=== PATIENT | female | born 1995 | race American Indian/Alaskan Native ===

== ENCOUNTER 2016-11-01 13:31 | Emergency (ER) | payer MEDICAID ==
[2016-11-01] MEDS ORDERED: TYLENOL PO ONE (14:30)
--- NOTE | 2016-11-01 14:30 | Emergency Department Report ---
Chief Complaint: Sore Throat Stated Complaint: STREP THROAT/ELEVATED TEMP/PAIN Time Seen by Provider: 11/01/16 14:26 - HPI History of Present Illness: PT c/o sore throat and fever since yesterday. PT [facility] could not treat her due to her fever. 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 Due to findings the following was ordered: meds ED Disposition for MSE Condition: Stable
[2016-11-01 14:31] VITALS: BP 110/69
--- NOTE | 2016-11-01 22:43 | Emergency Department Report ---
Entered by JUNIOR PEREZ, acting as scribe for FABIAN PARRISH NP. ED ENT HPI - General Chief complaint: Sore Throat Stated complaint: STREP THROAT/ELEVATED TEMP/PAIN Time Seen by Provider: 11/01/16 14:26 Source: patient, EMS Mode of arrival: Stretcher Limitations: No Limitations - History of Present Illness Initial comments: This is a 21-y/o-female, nontoxic, well nourished in appearance, no acute signs of distress presents with constant, achy sore throat and left sided ear pain that started yesterday with no aggravating or alleviating factors. Sx include subjective fever but pt denies wheezing, chest pain, SOB, SON, dizziness, fever, chills, stiff neck, numbness, abd pain or n/v. She notes being seen at [facility] today and being Dx with strep throat and left otitis media although they could not treat it due to her fever. No additional Sx. NKDA. complaint: sore throat, ear pain (left sided) -: days(s) (1) Location: L ear, throat Severity: moderate Severity scale (0 -10): 6 Quality: aching Consistency: constant Improves with: none Worsens with: none Associated Symptoms: sore throat. denies: fever, cough, gum swelling, toothache , pain with swallowing, tinnitus, hearing loss, discharge from ear, rhinorrhea - Related Data Home Medications Medication Instructions Recorded Confirmed Last Taken Folic Acid/Multivit-Min/Lutein 1 tab PO DAILY 07/16/13 07/16/13 06/20/13 [Therapeutic-M] Previous Rx's Medication Instructions Recorded Last Taken Type HYDROcodone/APAP 5-325 [[place] 1 each PO Q4H PRN #30 tablet 07/19/13 Unknown Rx 5/325 mg] Amoxicillin/K Clav Tab [Augmentin 1 tab PO Q12HR 10 Days 11/01/16 Unknown Rx 875 mg] Allergies Allergy/AdvReac Type Severity Reaction Status Date / Time No Known Allergies Allergy Verified 09/06/14 16:12 ED Dental HPI - General Chief complaint: Sore Throat Stated complaint: STREP THROAT/ELEVATED TEMP/PAIN Time Seen by Provider: 11/01/16 14:26 Source: patient, EMS Mode of arrival: Stretcher Limitations: No Limitations - Related Data Home Medications Medication Instructions Recorded Confirmed Last Taken Folic Acid/Multivit-Min/Lutein 1 tab PO DAILY 07/16/13 07/16/13 06/20/13 [Therapeutic-M] Previous Rx's Medication Instructions Recorded Last Taken Type HYDROcodone/APAP 5-325 [[place] 1 each PO Q4H PRN #30 tablet 07/19/13 Unknown Rx 5/325 mg] Amoxicillin/K Clav Tab [Augmentin 1 tab PO Q12HR 10 Days 11/01/16 Unknown Rx 875 mg] Allergies Allergy/AdvReac Type Severity Reaction Status Date / Time No Known Allergies Allergy Verified 09/06/14 16:12 ED Review of Systems Comment: All other systems reviewed and negative Constitutional: fever. denies: chills Eyes: denies: eye pain, eye discharge, vision change ENT: ear pain (left sided), throat pain Respiratory: denies: cough, shortness of breath, wheezing Cardiovascular: denies: chest pain Endocrine: no symptoms reported Gastrointestinal: denies: abdominal pain, nausea, vomiting Genitourinary: denies: urgency, dysuria, discharge Musculoskeletal: denies: back pain, joint swelling, arthralgia Skin: denies: rash, lesions Neurological: denies: headache, weakness, numbness Psychiatric: denies: anxiety, depression Hematological/Lymphatic: denies: easy bleeding, easy bruising ED Past Medical Hx - Past Medical History Previous Medical History?: Yes Hx Sickle Cell Disease: Yes Additional medical history: osteomyelitis - Surgical History Past Surgical History?: Yes Additional Surgical History: right leg surgery - Social History Smoking Status: Never Smoker Substance Use Type: None - Medications Home Medications: Home Medications Medication Instructions Recorded Confirmed Last Taken Type Folic Acid/Multivit-Min/Lutein 1 tab PO DAILY 07/16/13 07/16/13 06/20/13 History [Therapeutic-M] HYDROcodone/APAP 5-325 [[place] 1 each PO Q4H PRN #30 tablet 07/19/13 Unknown Rx 5/325 mg] Amoxicillin/K Clav Tab [Augmentin 1 tab PO Q12HR 10 Days 11/01/16 Unknown Rx 875 mg] ED Physical Exam - General Limitations: No Limitations General appearance: alert, in no apparent distress - Head Head exam: Present: atraumatic, normocephalic - Eye Eye exam: Present: normal appearance, PERRL, EOMI Pupils: Present: normal accommodation - ENT ENT exam: Present: mucous membranes moist, normal external ear exam - Expanded ENT Exam Expanded Ear exam: Present: normal external inspection TM/Canal exam: Erythema: Left TM, Bulging: Left TM Mouth exam: Present: normal external inspection, tongue normal. Absent: drooling, trismus, muffled voice, tongue elevation, laceration Teeth exam: Present: normal inspection Throat exam: Positive: tonsillar erythema, tonsillomegaly (2+), tonsillar exudate. Negative: R peritonsillar mass, L peritonsillar mass - Neck Neck exam: Present: normal inspection, full ROM. Absent: tenderness, meningismus, lymphadenopathy, thyromegaly, other (stiff neck) - Respiratory Respiratory exam: Present: normal lung sounds bilaterally. Absent: respiratory distress, wheezes, rales, rhonchi, stridor, chest wall tenderness, accessory muscle use, decreased breath sounds, prolonged expiratory - Cardiovascular Cardiovascular Exam: Present: regular rate, normal rhythm, normal heart sounds. Absent: bradycardia, tachycardia, irregular rhythm, systolic murmur, diastolic murmur - GI/Abdominal GI/Abdominal exam: Present: soft, distended, normal bowel sounds. Absent: tenderness, guarding, rebound, rigid, mass, bruit - Extremities Exam Extremities exam: Present: normal inspection, full ROM, normal capillary refill. Absent: tenderness, pedal edema, joint swelling, calf tenderness - Back Exam Back exam: Present: normal inspection, full ROM. Absent: tenderness, CVA tenderness (R), CVA tenderness (L), muscle spasm, paraspinal tenderness, vertebral tenderness, rash noted - Neurological Exam Neurological exam: Present: alert, oriented X3, CN II-XII intact, normal gait, reflexes normal. Absent: abnormal gait, motor sensory deficit - Psychiatric Psychiatric exam: Present: normal affect, normal mood - Skin Skin exam: Present: warm, dry, intact, normal color. Absent: rash ED Course Vital Signs 11/01/16 11/01/16 11/01/16 14:26 16:41 17:25 Temperature 102.9 F H 99.4 F Pulse Rate 125 H 91 H Respiratory 18 Rate Blood Pressure 110/69 O2 Sat by Pulse 100 Oximetry ED Medical Decision Making - Medical Decision Making Ed course: This is a 21-year-old female that presents with exudative tonsillitis and left otitis media. 1- after my physical exam, patient received Augmentin 875 twice a day for 10 days and was instructed to finish full course of antibiotics 2- patient is also instructed to follow-up with her primary care doctor in 3-5 days or if symptoms worsen report back to emergency room as soon as possible 3- at time time of discharge, the patient does not seem toxic or ill in appearance. No acute signs of distress noted. Patient agrees to discharge treatment plan of care. No further questions noted by the patient. ED Disposition Clinical Impression: Exudative tonsillitis, Otitis media Disposition: DC- TO HOME OR SELFCARE Is pt being admited?: No Does the pt Need Aspirin: No Condition: Stable Instructions: Amoxicillin/Clavulanate Potassium (By mouth), Otitis Media (ED), Tonsillitis (ED) Additional Instructions: Take full course of antibiotics as prescribed. Follow-up with her primary care doctor in 3-5 days or if symptoms worsen report back to emergency room as soon as possible. You can take [id number] Tylenol/ibuprofen as needed for fever as directed on the label. Prescriptions: Amoxicillin/K Clav Tab [Augmentin 875 mg] 1 tab PO Q12HR 10 Days Referrals: PRIMARY CAREMD [Primary Care Provider] - 3-5 Days [facility] [Outside] - 3-5 Days [facility] [Outside] - 3-5 Days IESHA DIGGS JR, MD [Staff Physician] - 3-5 Days Forms: Work/School Release Form(ED) This documentation as recorded by the CHRIS oh RYAN,accurately reflects the service I personally performed and the decisions made by me,FABIAN PARRISH NP.
== END 2016-11-01 17:42 | disposition home or self-care (01) ==
LOC: ED 13:31
DX: J03.90 Acute tonsillitis, unspecified (principal); H66.92 Otitis media, unspecified, left ear
CPT/HCPCS: 99283